=== PATIENT | male | born 1975 | race American Indian/Alaskan Native ===

== ENCOUNTER 2019-12-20 14:29 | Outpatient (CLI) | payer OTHER ==
[2019-12-20 18:19] VITALS: BP 132/89
--- NOTE | 2019-12-20 18:19 | SLEEP CARE CONSULTATION ---
Information from patient questionnaire entered by Donya George. I have reviewed and concur with the information entered by Donya George. This document represents the service I personally performed and the decisions made by me, Bing Reyez MD, [facility]. History of Present Illness Reason for Visit: New patient, Previously diagnosed sleep apnea, Re-establish care Chief Complaint: reports: Insomnia, Unrefreshed sleep, Snoring, Excessive daytime sleepiness, Observed pauses in breathing, Fatigue, Frequent awakenings at night Duration of Symptoms: 3 years Usual bedtime: 2100 Time it takes to fall asleep: 15 minutes Snores at night: Yes Observed to quit breathing while asleep: Yes Sleeps alone due to snoring: Yes Number of times waking at night: 2-3 Reasons for waking at night: reports: Snoring, Gasping for air, Bathroom Toss, Turn, or Twitch while sleeping: Yes Recalls having dreams: Yes Usually gets out of bed at: 0700 Feels refreshed in the morning: No Morning headache: Yes Sleepy or fatigued during the day: Yes Ever fallen asleep while driving: Yes Takes day naps: No Dreams during day naps: No Prior sleep studies: Yes Year and Where: 2015 [facility] Additional HPI information: I had the pleasure of seeing Mr. Velázquez today regarding the possibility of him have sleep-disordered breathing. As you know, he is a 44-year-old gentleman who was diagnosed with upper airway resistance syndrome here in 4 years ago. CPAP was prescribed but the patient did not use it much. The patient tells me that he normally goes to bed around 9 pm, and it takes him approximately 2 hours to fall asleep. He has been told that he snores loudly and irregularly at night. He has also been observed to stop breathing in his sleep. His has to sleep in a separate room. He can recall waking up on the average of 2 - 3 times during the night. Most of the time he wakes up because of his own snoring, choking, and having to gasp for air. There is a lot of tossing and turning in his sleep. He has somniloquy (sleep talking) but not somnambulism (sleep walking). Generally he can recall having dreams. In the morning he usually gets up out of the bed around 7 - 8 a.m. not feeling refreshed nor rested. He usually has a morning headache. During the day he complains of feeling sleepy and fatigued. His score on Hibbs Sleepiness Scale is 16 out of 24. He has fallen asleep while driving and has gone out of the nahid. He usually does not take naps during the day. Upon falling asleep during the day he denies having vivid dreams. He has never had sleep paralysis, experienced cataplexy but reports symptoms of restless leg syndrome. He also reports having impaired concentration during the day. Subjective Initial Hibbs Sleepiness Scale score: 16 Past Medical History Past Medical History: reports: Arthritis, Anxiety, Impotence, Depression Social History The patient's occupation is . Patient is and lives in [place]. Have you smoked in the past 12 months: No Alcohol use: Yes Alcohol amount and frequency: 2-4 as needed Caffeine use: Yes Caffeine amount and frequency: 1 cup/day Family History Family history of sleep disordered breathing: Yes Family Hx Sleep Apnea: Mother: Snoring Allergies and Home Medications Drug allergies reviewed: Yes (Viagra) Home medication list reviewed: Yes Review of Systems Weight gain over past 5 years: 15 Cardiovascular: denies: high blood pressure, palpitations, chest pain, irregular heart rate or pulse, leg or foot swelling, have to sleep sitting up, other Respiratory: reports: shortness of breath Gastrointestinal: denies: heartburn, difficulty swallowing, nausea, vomitting, diarrhea, abdominal pain, other Urinary: reports: impotence Neurological: reports: headaches Psychiatric: reports: anxiety, depression Ear/Nose/Throat: reports: dry mouth/throat, wisdom teeth removed Endocrine: denies: thyroid disease, history of goiter, sluggishness, too hot or cold, excessive thirst, increased appetite, increased urination, unexplained weakness, other Musculoskeletal: reports: joint pain, back pain, muscle pain or cramping Immunologic: denies: sneezing, rash, itching, allergies to food or environment, other Physical Exam Vital signs obtained and entered by: Dr. Sutton Blood Pressure: 132/89 Cuff size: regular Heart Rate: 80 O2 Saturation: 97 Height: 6 ft 2 in Weight: 250 lb Body Mass Index: 32.1 BMI Classification: Obese Neck circumference: 19.5 Mood/affect: normal HEENT: No craniofacial malformation Nostrils: patent to airflow Turbinates: normal Septum: midline Mouth and throat: narrow oropharynx Soft palate: long Hard palate: normal Uvula: normal Uvula visualization: 50% Mallampati Class II Tongue: normal in size Tonsils: small Chin and jaw: normal size and position Neck: normal w/o lymphadenopathy or thyromegaly Heart: regular rate and rhythm Lungs: clear bilaterally Abdomen: soft, non-tender Extremities: no edema or clubbing Neurologic: intact, no focal deficits Impression and Plan IMPRESSION: 1. Obstructive Sleep Apnea-Hypopnea Syndrome, as suggested by history of loud and irregular snoring, observed cessation of breath while asleep, frequent awakenings during the night, unrefreshed sleep, morning headache, cognitive impairment, and daytime hypersomnolence. Narrow oropharynx and obesity are common predisposing factors for obstructive sleep apnea-hypopnea syndrome. Pathophysiology of sleep-disordered breathing was discussed. I recommend proceeding to polysomnography to confirm the diagnosis and to assess severity. If he has significant sleep disordered breathing, a manual CPAP titration study will also be performed to find the optimal treatment pressure. I informed the patient of what the sleep studies involve and after some discussion, he agreed to proceed. 2. Insomnia, involving the sleep onset. This is simply because he has been going to bed too early for his wakeup time. Because he wakes up on the average of 7:30 am, he should not go to bed until 11:30 pm, assuming the normal sleep requirement of 8 hours a night. Therefore, going to bed at 9 pm is 2.5 hours too early, and, hence insomnia. Plan: 1. Schedule an in-laboratory polysomnography + manual CPAP titration study and return in 1 to weeks after the study to discuss result and initiate therapy. 2. Avoid long distance driving or when feeling sleepy. 3. Avoid alcohol, sedative and muscle relaxant around bedtime. 4. Attempt to lose weight. 5. Maintain a regular wake up time and spend no more than 8 hours in bed at night. Avoid naps. I spent 100% of this visit face to face with the patient with greater than 50% of this was spent time counseling the patient and coordination of care.
== END 2019-12-20 14:30 | disposition home or self-care (01) ==
LOC: SC 14:29
PROVIDERS: ATTEND Internal Medicine Pulmonary Disease
DX: G47.8 Other sleep disorders (principal); G47.00 Insomnia, unspecified; E66.9 Obesity, unspecified; Z68.32 Body mass index [BMI] 32.0-32.9, adult
CPT/HCPCS: 99203; 99212

== ENCOUNTER 2020-01-04 20:29 | Outpatient (CLI) | payer OTHER | END 2020-01-04 20:30 | disposition home or self-care (01) | LOC: SC 20:29 | PROVIDERS: ATTEND Internal Medicine Pulmonary Disease | DX: G47.33 Obstructive sleep apnea (adult) (pediatric) (principal); E66.3 Overweight; Z68.29 Body mass index [BMI] 29.0-29.9, adult | CPT/HCPCS: 95810 ==

== ENCOUNTER 2020-02-06 17:00 | Outpatient (CLI) | payer OTHER ==
--- NOTE | 2020-02-06 13:56 | SLEEP CARE CONSULTATION ---
Information from patient questionnaire entered by Donya George. I have reviewed and concur with the information entered by Donya George. This document represents the service I personally performed and the decisions made by me, Frieda Putnam RN, MSN, [employer]. History of Present Illness Service Date and Time: 02/06/2020 1330 Initial [place] Sleepiness Scale score: 16 Current [place] Sleepiness Scale score: 18 Additional HPI information: GENA COURTNEY had a video telehealth visit to discuss the results of the recently performed polysomnography. I explained the pathophysiology behind obstructive sleep apnea. We then spent quite a bit of time discussing different treatment options. For mild obstructive sleep apnea, surgery and oral appliance are alternatives to nasal CPAP therapy but in moderate or severe cases, nasal CPAP is the most effective and reliable treatment. Because apnea is primarily in supine position, then positional management therapy could be effective. Methods discussed such as positioning with pillows, using a T-shirt with tennis balls in the back, and shown commercial products that have a pillow format on back to prevent supine sleep. I reviewed the impact of weight changes on sleep apnea and strongly recommended losing weight. After some discussion, the patient opted to go with the nasal CPAP therapy. Nasal autoCPAP set at [id number] will be ordered with rationale explained. A manual titration study will be ordered if unable to find optimal pressure with office adjustments. I explained how CPAP machine works and what to expect when using the machine. Using CPAP every night in order to get used to it was emphasized. Patient advised to put CPAP mask on before getting into bed so as not to fall asleep without CPAP. To assist acclimation to CPAP use, it could also be used for a short time during day while reading or watching TV. The patient was instructed to call the CPAP supplier to discuss any mechanical problem that may occur. If the mask given is uncomfortable or is difficult to keep on through the night even with adjustment, contact the CPAP supplier as many will replace with another mask style if notified before 30 days. If snoring or perceives is not getting enough air or too much air from the machine, notify this office. AAS patient education PAP tips reviewed and will be sent to patient with his copy of sleep study. Patient counseled not drink alcohol less than 4 hours before bedtime as it can increase snoring and apnea. Patient was cautioned about risks of drowsy driving until sleepiness symptoms resolve. Sleep Study - Results Polysomnography/Home Sleep Study results: The quality of the study is good. The patient had normal sleep efficiency. Except for mild sleep fragmentation, the sleep architecture was normal as well. Respiratory monitoring showed mild obstructive sleep apnea-hypopnea (AHI = 13.2) associated with frequent arousals, oxyhemoglobin desaturation and mild hypoxia (elsi oxygen saturation of 88%). The respiratory events occurred only during supine sleep (supine AHI = 18.5; non-supine = 0.00). Snore was loud in intensity. There was no significant periodic leg movement of sleep. Cardiac rhythm was normal sinus rhythm without significant arrhythmia. No abnormal behavior (parasomnia) observed during the night. Allergies and Home Medications Home medication list reviewed: No (no changes ) Review of Systems Review of systems same as previous: Yes Physical Exam Height: 6 ft 2 in Weight: 230 lb (home weight) Body Mass Index: 29.5 BMI Classification: Overweight Impression and Plan 1. Obructive Sleep Apnea-Hypopnea Syndrome, mild, with lowest oxygen saturation of 88%. Obviously this is the cause of the patients symptoms of unrefreshed sleep, and excessive daytime sleepiness. As mentioned above, the patient will be started on nasal autoCPAP therapy with pressure set at 4-15 cmH2O. An urgent request will be placed on his prescription due to his excessive sleepiness symptoms. A manual titration study will be completed if unable to find optimal treatment pressure with office adjustments. Compliance guidelines also reviewed. A copy of compliance guidelines will be sent to patient with a copy of his sleep study and PAP tips pamphlet. Because the apnea is more severe supine, I instructed to avoid sleeping supine using pillow positioning until able to start CPAP use. * Nasal auto CPAP therapy, pressure at 4-15cm H2O. * Attempt to lose weight. * Avoid alcohol consumption near bedtime. * Avoid supine sleep until using CPAP. * The patient is again cautioned about driving until sleepiness completely resolves. * Return one month after CPAP obtained. I will assess response to therapy and compliance at that time. Visit Type: Telehealth Video (to minimize risk of Covid 19 exposure, patient agreed to telehealth visit and to bill insurance.) Video Type: [employer] Patient Location: Home Location of Provider: Home Patient agrees and consents to this telehealth visit type: Yes Time Spent with Patient (minutes): 20 Provider Statement: I spent 100% of the Telehealth Video Call with the patient with greater than 50% spent counseling the patient and coordination of care.
== END 2020-02-06 17:01 | disposition home or self-care (01) ==
LOC: SC 17:00
PROVIDERS: ATTEND Nurse Practitioner Family
DX: G47.33 Obstructive sleep apnea (adult) (pediatric) (principal); E66.3 Overweight; Z68.29 Body mass index [BMI] 29.0-29.9, adult

== ENCOUNTER 2020-03-21 09:08 | Outpatient (CLI) | payer OTHER ==
--- NOTE | 2020-03-21 10:10 | MRI Report ---
Reason: LOW BACK PAIN Procedure Date: 03/21/2020 Accession Number: [id number] / [id number] Procedure: MRI - Lumbar Spine W/O CPT Code: Final Report FULL RESULT: PROCEDURE: Lumbar Spine W/O INDICATIONS: LOW BACK PAIN TECHNIQUE: Noncontrast sagittal T1 spin echo and T2 fast echo, sagittal STIR, axial T1 and T2 fast spin echo through the lumbar spine. In cases with scoliosis, additional coronal T2 fast spin echo may be performed. COMPARISON: None. FINDINGS: Image quality: Diagnostic. Alignment and Curvature: There is minimal levoconvex scoliotic curvature. Minimal retrolisthesis is seen at L4-L5 and L5-S1. Bone Marrow: Marrow is of normal overall signal. No acute vertebral body compression fractures. Spinal Cord: Conus medullaris terminates at the L1 level. Visualized cord demonstrates normal signal and size. Paraspinous Soft Tissues: No paravertebral masses. T12-L1: Normal in appearance. L1-L2: Normal in appearance. L2-L3: Normal in appearance. L3-L4: Normal in appearance. L4-L5: The disc height is well-preserved. There is loss of disc signal seen. Moderate disc bulge is seen, with a mild central disc protrusion. Moderate facet hypertrophy is seen. Moderate bilateral neuroforaminal narrowing is seen, left worse than right. Mild to moderate central canal narrowing is seen. L5-S1: Mild to moderate loss of disc height and disc signal can be seen. Moderate disc bulge is seen, with a central disc protrusion. Moderate facet hypertrophy is seen. There is at least moderate right-sided and moderate to severe left-sided neuroforaminal narrowing seen. Compression is seen upon the exiting nerve roots, left worse than right. Mild to moderate central canal narrowing is seen. 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 There is a degree of compression seen upon the exiting bilateral L5 nerve roots, left worse than right. Reviewed by: Tom Ewing MD on 03/21/2020 9:09 AM SLOAN Approved by: Tom Ewing MD on 03/21/2020 9:09 AM SLOAN Station ID: [id number]
== END 2020-03-21 09:09 | disposition home or self-care (01) ==
LOC: DI 09:08
DX: M51.26 Other intervertebral disc displacement, lumbar region (principal); M51.27 Other intervertebral disc displacement, lumbosacral region; M47.816 Spondylosis without myelopathy or radiculopathy, lumbar region; M47.817 Spondylosis without myelopathy or radiculopathy, lumbosacral region
CPT/HCPCS: 72148

== ENCOUNTER 2021-05-24 12:38 | Emergency (ER) | payer OTHER ==
[2021-05-24 13:17] LABS: BASOPHILS # (AUTO) 0.1 10^3/uL (0.0-0.1); BASOPHILS % (AUTO) 0.5 %; EOSINOPHILS # (AUTO) 0.2 10^3/uL (0.0-0.7); HCT - HEMATOCRIT 45.1 % (42.0-52.0); HGB - HEMOGLOBIN 15.3 g/dL (14.0-18.0); LYMPHOCYTES # (AUTO) 2.1 10^3/uL (1.5-3.5); LYMPHOCYTES % (AUTO) 21.5 %; MEAN CORPUSCULAR HEMOGLOBIN 29.3 pg (27.0-31.0); MEAN CORPUSCULAR HGB CONC 33.9 g/dL (32.0-36.0); MEAN CORPUSCULAR VOLUME 86.2 fL (80.0-94.0); MEAN PLATELET VOLUME 9.7 fL (7.4-11.4); MONOCYTES # (AUTO) 0.6 10^3/uL (0.0-1.0); MONOCYTES % (AUTO) 5.7 %; NEUTROPHILS # (AUTO) 6.9 10^3/uL (1.5-6.6); PLT - PLATELET COUNT 241 10^3/uL (130-450); RED BLOOD COUNT 5.23 10^6/uL (4.70-6.10); RED CELL DISTRIBUTION WIDTH 12.6 % (12.0-15.0); WHITE BLOOD COUNT 9.8 x10^3/uL (4.8-10.8)
--- NOTE | 2021-05-24 13:17 | ED Physician Documentation ---
PD HPI CHEST PAIN - Stated complaint Stated Complaint: CHEST PX,SOA,TIRED - Chief complaint Chief Complaint: Cardiac - History obtained from History obtained from: Patient - History of Present Illness Timing - onset: How many days ago (3) Timing - onset during: Rest Timing - duration: Days (3) Timing - details: Gradual onset Pain level max: 2 Pain level now: 1 Quality: Pressure, Aching. No: Tightness, Sharp, Tearing, Dull, Stabbing, Throbbing, Indigestion, Like prior ACS, Pain Location: Substernal Radiation: No: Jaw, Neck, Back, Abdominal, Left upper extremity, Right upper extremity Improved by: Rest Worsened by: Exertion Associated symptoms: No: Shortness of air, Diaphoresis, Nausea, Vomiting, Feeling faint / dizzy, General Weakness, Palpitations, Cough - Additional information Additional information: Patient is a 45-year-old male who presents to the emergency department complaint of chest tightness intermittently for the past 3 days. He has been vaccinated for Covid, but states he had a Covid exposure on Thursday. He states he is retiring from the [employer] and has family coming into town. Concerned about possible Covid infection. No fevers. No chills. has not been feeling well the past few days as well. Review of Systems Constitutional: denies: Fever, Chills GI: denies: Vomiting, Diarrhea Skin: denies: Rash Musculoskeletal: denies: Neck pain, Back pain Neurologic: denies: Headache PD PAST MEDICAL HISTORY - Past Medical History Past Medical History: No - Past Surgical History Past Surgical History: No - Present Medications Home Medications: Ambulatory Orders Medication Instructions Recorded Confirmed No Known Home Medications 05/24/21 05/24/21 - Allergies Allergies/Adverse Reactions: Allergies Allergy/AdvReac Type Severity Reaction Status Date / Time No Known Drug Allergies Allergy Verified 05/24/21 12:56 - Living Situation Living Situation: reports: With family Living Arrangement: reports: At home - Social History Does the pt have substance abuse?: No PD ED PE NORMAL - Vitals Vital signs reviewed: Yes - General General: Alert and oriented X 3, No acute distress, Well developed/nourished - HEENT HEENT: PERRL, Moist mucous membranes - Neck Neck: Supple, no meningeal sign - Cardiac Cardiac: RRR, Strong equal pulses - Respiratory Respiratory: No respiratory distress, Clear bilaterally - Abdomen Abdomen: Soft, Non tender, Non distended - Derm Derm: Warm and dry - Extremities Extremities: No edema, No calf tenderness / cord - Neuro Neuro: Alert and oriented X 3 - Psych Psych: Normal mood, Normal affect Results - Vitals Vitals: Vital Signs - 24 hr 05/24/21 05/24/21 12:48 14:08 Temperature 37.0 C 36.7 C Heart Rate 88 83 Respiratory 20 17 Rate Blood Pressure 130/85 H 120/76 O2 Saturation 97 95 Oxygen O2 Source Room air - EKG (time done) 1248 Rate: Rate (enter#) (87) Rhythm: NSR [place]: Normal Intervals: Normal NC QRS: Normal Ischemia: Normal ST segments - Labs Labs: Laboratory Tests 05/24/21 05/24/21 05/24/21 13:11 13:11 13:11 WBC 9.8 RBC 5.23 Hgb 15.3 Hct 45.1 MCV 86.2 MCH 29.3 MCHC 33.9 RDW 12.6 Plt Count 241 MPV 9.7 Neut # (Auto) 6.9 H Lymph # (Auto) 2.1 [place] # (Auto) 0.6 Eos # (Auto) 0.2 Baso # (Auto) 0.1 Absolute Nucleated RBC 0.00 Nucleated RBC % 0.0 Sodium 138 Potassium 4.1 Chloride 104 Carbon Dioxide 25 Anion Gap 9.0 BUN 21 H Creatinine 0.9 Estimated GFR (MDRD) 92 Glucose 123 H Calcium 9.1 Total Bilirubin 1.0 AST 26 ALT 36 Alkaline Phosphatase 64 Troponin I High Sens < 2.3 L Total Protein 7.4 Albumin 4.6 Globulin 2.8 Albumin/Globulin Ratio 1.6 Lipase 24 - Rads (name of study) cxr Radiology: Final report received, EMP read contemporaneously, See rad report (no acute abnormality) PD MEDICAL DECISION MAKING - ED course Complexity details: reviewed results, re-evaluated patient, considered differential (No ST elevation MT, no aortic dissection, no PE, no tension pneumothorax, no aortic aneurysm), d/w patient ED course: No acute findings on EKG, chest x-ray or laboratory testing. Patient is well- appearing, nontoxic. Afebrile. No hypoxia. Covid testing performed. Patient counseled regarding signs and symptoms for which I believe and urgent re- evaluation would be necessary. Patient with good understanding of and agreement to plan and is comfortable going home at this time This document was made in part using voice recognition software. While efforts are made to proofread this document, sound alike and grammatical errors may occur. Departure - Departure Disposition: 01 Home, Self Care Clinical Impression: Chest pain Qualifiers: Chest pain type: unspecified Qualified Code(s): R07.9 - Chest pain, unspecified Condition: Good Instructions: ED Chest Pain Atypical Unkn Cause Follow-Up: your,doctor in 1 week [Other] Comments: Your testing is normal today. Please follow-up with your doctor for further care. Return if you worsen. You also have a Covid test pending, this should be resulted within the next 24 hours. You can check the results on the patient portal. Discharge Date/Time: 05/24/21 14:12
--- NOTE | 2021-05-24 13:41 | XRAY Report ---
PROCEDURE: Chest 1 View X-Ray INDICATIONS: Chest pain TECHNIQUE: One view of the chest was acquired. COMPARISON: None. FINDINGS: Surgical changes and devices: None. Lungs and pleura: No pleural effusions or pneumothorax. No acute consolidation however 1 cm ill-de fined nodular opacity projecting the left upper lobe which is indeterminate in the absence of prior s tudies. Mediastinum: Mediastinal contours appear normal. Heart size is normal. Bones and chest wall: No suspicious bony lesions. Overlying soft tissues appear unremarkable. IMPRESSION: No acute consolidation. 1 mm nodule projects in the left upper lobe, technically nonspecific. This co uld be superimposition of shadows artifact or anterior costochondral calcification, however cannot ex clude pulmonary nodule or small focus of early bronchopneumonia, therefore recommend follow-up with P A and lateral chest radiographs in one month. And if this persists, CT chest could be performed for d efinitive assessment. Reviewed by: Jordin Fernando MD on 05/24/2021 1:40 PM PDT Approved by: Jordin Fernando MD on 05/24/2021 1:40 PM PDT Station ID: [id number]
[2021-05-24 13:43] LABS: ALBUMIN 4.6 g/dL (3.2-5.5); ALBUMIN/GLOBULIN RATIO 1.6 (1.0-2.2); CALCIUM 9.1 mg/dL (8.5-10.3); CREATININE 0.9 mg/dL (0.6-1.2); POTASSIUM 4.1 mmol/L (3.5-5.0); TOTAL PROTEIN 7.4 g/dL (6.7-8.2)
[2021-05-24 14:09] VITALS: BP 120/76
== END 2021-05-24 14:12 | disposition home or self-care (01) ==
LOC: ED 12:38
DX: R07.89 Other chest pain (principal); Z20.822 Contact with and (suspected) exposure to COVID-19
CPT/HCPCS: 36415; 80053; 83690; 84484; 85025; 93005; 99284

== ENCOUNTER 2023-08-31 13:39 | Emergency (ER) | payer OTHER ==
--- NOTE | 2023-08-31 16:03 | ED Physician Documentation ---
History of Present Illness - Stated complaint Stated Complaint: NECK PX - Chief complaint Chief Complaint: Trauma Hd/Nk - Additonal information Additional information: 48-year-old male presents emergency department for evaluation of acute right- sided neck pain. Reports that Thursday evening he jumped into his truck but the [employer] driver seat had been moved forward so he was not in the usual position. When he did this he hit the right side of his head forcefully on the cab and developed sudden pain in the neck. He has difficulty with right lateral rotation and forward flexion. No paresthesias or loss of motor strength. He has taken Tylenol as well as a single dose of Motrin without relief. Now states he have a sore throat and difficulty swallowing. Review of Systems Constitutional: denies: Fever Eyes: reports: Reviewed and negative Throat: reports: Reviewed and negative Cardiac: reports: Reviewed and negative Musculoskeletal: reports: Neck pain Neurologic: reports: Reviewed and negative Psychiatric: reports: Reviewed and negative PD PAST MEDICAL HISTORY - Past Medical History Past Medical History: No - Past Surgical History Past Surgical History: No - Present Medications Home Medications: Ambulatory Orders Medication Instructions Recorded Confirmed oxyCODONE [Roxicodone] 5 mg PO BID PRN #5 tablet 08/31/23 - Allergies Allergies/Adverse Reactions: Allergies Allergy/AdvReac Type Severity Reaction Status Date / Time No Known Drug Allergies Allergy Verified 05/24/21 12:56 - Social History Does the pt smoke?: No Smoking Status: Never smoker Does the pt have substance abuse?: No PD ED PE NORMAL - General General: Alert and oriented X 3, No acute distress, Well developed/nourished - HEENT HEENT: Atraumatic, Moist mucous membranes, Pharynx benign (Mildly erythematous posterior pharynx. Mallampati of 4. No tonsillar exudate. Uvula is midline. No soft palate asymmetry or swelling. No dysphonia. No trismus.), Other - Neck Neck: Supple, no meningeal sign, Other (Tenderness with palpation of the right cervical paraspinous muscles with radiation of pain down into the trapezius. Reduced right lateral rotation. Painful though full normal forward flexion. No midline tenderness. No paresthesias. Normal strength at shoulders triceps elbows hands and wrist) - Cardiac Cardiac: RRR, No murmur - Respiratory Respiratory: Clear bilaterally Results - Vitals Vitals: Vital Signs - 24 hr 08/31/23 08/31/23 14:10 17:21 Temperature 36.3 C L Heart Rate 92 89 Respiratory 16 16 Rate Blood Pressure 136/95 H 133/66 H O2 Saturation 98 95 Oxygen O2 Source Room air - Labs Labs: Laboratory Tests 08/31/23 16:15 Group A Strep Rapid Negative - Rads (name of study) Cervical CT Relevant Findings:: Final report received (No acute fracture or osseous lesion. No paravertebral hematomas. No atypical pneumothoraces.A chest I) PD Medical Decision Making - ED course Complexity details: reviewed results, d/w patient ED course: 48-year-old male presents to the emergency department for evaluation of acute right-sided neck pain sustained when he hit his head on the cab of his truck when entering it on Thursday. Since then sharp pain that radiates up the neck. Unrelieved by Tylenol and Motrin at home. Also reporting a sore throat. On exam no midline cervical tenderness was elicited though there was tenderness in the posterior paraspinous muscles with radiation down into the trapezius region. No rash swelling ecchymosis or erythema was noted. He had normal movement of the arms with preserved strength and reflexes. I discussed with patient likely etiology was simple sprain, strain or contusion. However patient feels that there is likely a degenerative process within the bones causing this pain and as such a CT was completed of the cervical spine. There was no obvious fracture or osseous lesion. The soft tissues showed no hematomas. In the emergency department patient was given a dose of Toradol with marked improvement in pain. I did recommend Tylenol and Motrin for analgesia as well as follow-up with PCP. He did request some oxycodone for pain as he states he has not slept for the last 3 days. 5 tablets were sent to his preferred pharmacy. I am prescribing a short course of short-acting opioid pain medication for this patient. 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 I have discussed that the opioids are for short term therapy only, and will not be refilled from the ED. Departure - Departure Disposition: Home, Self Care Clinical Impression: Neck pain on right side Condition: Stable Record reviewed to determine appropriate education?: Yes Prescriptions: oxyCODONE [Roxicodone] 5 mg PO BID PRN #5 tablet PRN Reason: Pain Comments: The CT of your cervical spine did not show any broken bones. There was no findings for hematoma or swelling within the soft tissues. Your history and exam is most consistent with a muscle pull or strain or even a contusion. I would like you to take Tylenol 500 mg 3-4 times a day or alternate with ibuprofen 600 mg also 3-4 times a day. In general icing the neck for 10 minutes 2-3 times a day may be helpful. Avoid over stretching the neck. Most simple strains and contusions get better over a week to 10 days. A very limited amount of oxycodone has been sent to the [facility]. Is important you follow closely with your primary care doctor. If you find your symptoms or not improving as anticipated you may benefit from referral to physical therapy. I am prescribing a short course of narcotic pain medication for you. These are potentially dangerous and addictive medications that should be used carefully. These medications may constipate you. Take an arip-rhj-xnakxhk stool softener (docusate) twice daily with plenty of water while taking these medications. If you go 24 hours without a bowel movement, take nhni-okz-[id number] miralax, per package instructions. Do not drink or drive while taking these medications. If you received narcotic or sedating medications while in the emergency department, do not drive for 24 hours. Store this medication in a safe, secure place and out of reach of children. It is a violation of federal law to give or sell this medication to another person or to use in a manner other than prescribed. The ED will not refill narcotic prescriptions, including prescriptions lost or stolen. To dispose of unwanted medications: 1. [facility] at [address] [facility] in [place] has a medication drop box. They accept prescription medications (in pill form) Thursday through Thursday 9:00 a.m. to 5:00 p.m. 2. The [facility] [employer] accepts prescription medications (in pill form only) for disposal year round. Call for more information. 3. Contact the [facility] for the next [facility] sponsored prescription drug collection event. , [phone], or [phone]; Note that many narcotic pain relievers also contain Tylenol/acetaminophen. Please ensure that your total dose of acetaminophen from all sources does not exceed 3 g (3000 mg) per day. Forms: PCP List
[2023-08-31] MEDS: KETOROLAC 60 MG/2 ML VIAL IM STA (16:15)
[2023-08-31 16:42] LABS: RAPID STREP SCREEN Negative (Negative)
[2023-08-31 17:25] VITALS: BP 133/66; O2SAT 95
--- NOTE | 2023-08-31 17:27 | CT Report ---
PROCEDURE: CERVICAL SPINE WO INDICATIONS: right sided neck pain after hitting head TECHNIQUE: Noncontrast 3 mm thick sections acquired from the skull base to the T4 level. Sagittal and coronal r eformats were then constructed. For radiation dose reduction, the following was used: automated exp osure control, adjustment of mA and/or kV according to patient size. COMPARISON: None. FINDINGS: Image quality: Excellent. Bones: No fractures or dislocations. Visualized superior ribs are intact. Soft tissues: Prevertebral soft tissues are normal in thickness. No paravertebral hematomas. No ap ical pneumothoraces. IMPRESSION: No acute fracture. No osseous lesion. If symptoms and/or clinical suspicion for pathology continue, f urther assessment with repeat plain films, or advanced imaging (e.g., CT, MRI, or bone scan) is recom mended for further assessment. Reviewed by: Luis A Cordero MD on 08/31/2023 5:26 PM PST Approved by: Luis A Cordero MD on 08/31/2023 5:26 PM PST Station ID: [id number]
== END 2023-08-31 18:09 | disposition home or self-care (01) ==
LOC: ED 13:39
DX: M54.2 Cervicalgia (principal)
CPT/HCPCS: 87070; 87430; 96372; 99283; 99284